=== PATIENT | male | born 2000 | race Caucasian/White ===

== ENCOUNTER → 2024-03-27 | Outpatient (CLI) | payer OTHER ==
[2024-03-27 15:28] LABS: Basophils # (A) 0.05 X 10*3/uL (0.00-0.10); Basophils % (A) 0.5 %; Eosinophils # (A) 0.09 X 10*3/uL (0.04-0.35); Eosinophils % (A) 0.9 %; HCT 49.3 % (39.6-50.0); HGB 17.5 g/dL (13.0-17.0); Lymphocytes # (A) 3.84 X 10*3/uL (0.90-5.00); Lymphocytes % (A) 37.4 %; MCH 32.8 pg (27.0-32.0); MCHC 35.5 g/dL (32.0-37.0); MCV 92.5 FL (80.0-97.0); Mean Platelet Volume 11.8 FL (9.5-12.2); Monocytes # (A) 0.69 X 10*3/uL (0.20-1.00); Monocytes % (A) 6.7 %; NRBC Per 100 WBC 0 X 10*3/uL (0.00-0.01); Neutrophils # (A) 5.57 X 10*3/uL (1.80-7.70); Neutrophils % (A) 54.2 %; Platelet Count 213 X 10*3/uL (140-440); RBC 5.33 X 10*6/uL (4.40-5.60); WBC 10.27 X 10*3/uL (4.50-10.00)
[2024-03-27 15:49] LABS: ALT 32 U/L (10-49); AST 28 U/L (14-35); Albumin 4.4 g/dL (3.8-4.9); Albumin/Globulin Ratio 1.83 Ratio (1.60-3.17); Alkaline Phosphatase 66 U/L (41-126); BUN/Creat Ratio 17.14 Ratio (12.00-20.00); Chloride 102 mmol/L (96-109); Globulin 2.4 g/dL (1.6-3.3); Glucose 85 mg/dL (70-110); Potassium 3.9 mmol/L (3.5-5.5); Sodium 139 mmol/L (135-145); T4, Free (Free Thyroxine) 1.16 ng/dL (0.80-1.80); Total Bilirubin 0.5 mg/dL (0.3-1.2); Total Protein 6.8 g/dL (6.2-8.2)
== END | disposition home or self-care (01) ==
LOC: LABWHC1 07:27
PROVIDERS: ATTEND Psychiatry & Neurology Neurology
DX: F60.9 Personality disorder, unspecified (principal); R41.89 Other symptoms and signs involving cognitive functions and awareness
CPT/HCPCS: 36415; 80053; 82607; 84439; 84443; 85025

== ENCOUNTER → 2024-07-30 | Outpatient (CLI) | payer OTHER ==
--- NOTE | 2024-07-30 09:22 | XR ---
EXAMINATION TYPE: XR chest 2V DATE OF EXAM: 07/30/2024 CLINICAL INDICATION: Male, 24 years old with history of R06.00 Dyspnea, TECHNIQUE: Frontal and lateral views of the chest are obtained. COMPARISON: None FINDINGS: There is no focal air space opacity, pleural effusion, or pneumothorax seen. The cardiac silhouette size is within normal limits. The osseous structures are intact. IMPRESSION: No acute cardiopulmonary process. [facility], , 07/30/2024 9:20 AM
== END | disposition home or self-care (01) ==
LOC: RADXRMAIN 09:01
PROVIDERS: ATTEND Internal Medicine
DX: R06.00 Dyspnea, unspecified (principal)
CPT/HCPCS: 71046